=== PATIENT | male | born 1965 | race Two or more races ===

== ENCOUNTER 2020-07-19 17:38 | Inpatient (IN) | payer MEDICAID, OTHER ==
[~2020-07-19] VITALS: Ht 172.7 cm; Wt 65.1 kg
[2020-07-19] MEDS ORDERED: SODIUM CHLORIDE 0.9% 1,000 ML IV ONE ×2 (17:49)
[2020-07-19] MEDS ORDERED: InsuLIN REG 1unit/0.01ml Soln (100units/ml) IV ONE (18:00)
[2020-07-19 19:27] LABS: Basophils # (auto) 0.1 10 ^3/uL (0-0.2); Basophils % (auto) 0.6 % (0.0-2.0); Eosinophils # (auto) 0.1 10 ^3/uL (0-0.8); Eosinophils % (auto) 1.2 % (0.0-7.0); Hematocrit 38.2 % (41.0-53.0); Hemoglobin 12.8 g/dL (13.5-17.5); Lymphocytes % (auto) 12.4 % (10.0-50.0); Mean Corpuscular Hemoglobin 29.8 pg (28.0-32.0); Mean Corpuscular Hgb Conc. 33.6 g/dL (32.0-36.0); Mean Corpuscular Volume 88.8 fL (80.0-100.0); Monocytes # (auto) 0.3 10 ^3/uL (0-1.3); Monocytes % (auto) 3.6 % (0.0-12.0); Neutrophils # (auto) 6.8 10 ^3/uL (1.6-8.6); Neutrophils % (auto) 82.2 % (37.0-80.0); Nucleated Red Blood Cells % 0.1 %; Platelet Count (auto) 251 10^3/uL (140-450); Red Cell Distribution Width 13.6 % (11.8-14.3); White Blood Cell 8.3 10^3/uL (4.4-10.8)
[2020-07-19 19:44] LABS: Albumin 3.4 g/dL (3.4-5.0); Calcium 8.8 mg/dL (8.5-10.1); Potassium 4.6 mmol/L (3.5-5.1)
[2020-07-19] MEDS ORDERED: InsuLIN REG 1unit/0.01ml Soln (100units/ml) SC ONE (19:45)
[2020-07-19 19:52] LABS: BUN/Creatinine Ratio 10.3; Bilirubin, Total 0.4 mg/dL (0.2-1.0); Total Protein 7.6 g/dL (6.4-8.2)
[2020-07-19] MEDS ORDERED: MORPHINE SULF INJ 2 MG/ML SYRINGE 1ML IV PRN (23:00)
[2020-07-19] MEDS ORDERED: ENOXAPARIN SOD 100 MG/1 ML SYRINGE SC ONE (23:00)
[2020-07-19] MEDS ORDERED: ACETAMINOPHEN 325 MG TAB PO PRN (23:00)
[2020-07-19] MEDS ORDERED: NITROGLYCERIN 0.4 MG SL TAB SL PRN (23:00)
[2020-07-19] MEDS ORDERED: ONDANSETRON HCL 4 MG/2 ML VIAL IV PRN (23:00)
[2020-07-19] MEDS ORDERED: DEXTROSE (50%) 50ML SYRG IV PRN (23:00)
[2020-07-20] VITALS (8 sets, daily range): BP systolic 95–135; BP diastolic 68–79
--- NOTE | 2020-07-20 00:52 | NUR ---
Telemetry admit from ER SURESH KEYES admitted to Telemetry unit after SBAR received. Patient oriented to Jazmin Valencia, primary RN, unit, room, bed, and unit policies regarding patient care and visiting hours. Patient now on continuous telemetry monitoring, tele box # [id number] and telemetry reading on arrival to unit is sinus rhythm 64. Patient placed on bedside oxygen, weighed by bedscale and encouraged to call if they need something. All questions and concerns addressed, patient verbalized understanding. Note:
[2020-07-20] MEDS ORDERED: METF-370 PO ×2 (03:23→18:48)
[2020-07-20] MEDS: ACCU-CHEK COMFORT CURVE STRIP VI SCH ×4 (06:31→17:41)
[2020-07-20] MEDS: InsuLIN REG 1unit/0.01ml Soln (100units/ml) SC SCH ×4 (06:32→17:43)
[2020-07-20 07:51] LABS: Basophils # (auto) 0.1 10 ^3/uL (0-0.2); Basophils % (auto) 0.8 % (0.0-2.0); Eosinophils # (auto) 0.2 10 ^3/uL (0-0.8); Eosinophils % (auto) 2.5 % (0.0-7.0); Hematocrit 34.5 % (41.0-53.0); Hemoglobin 11.8 g/dL (13.5-17.5); Lymphocytes # (auto) 1.8 10 ^3/uL (0.4-5.4); Lymphocytes % (auto) 22.9 % (10.0-50.0); Mean Corpuscular Hemoglobin 30.1 pg (28.0-32.0); Mean Corpuscular Hgb Conc. 34.3 g/dL (32.0-36.0); Mean Corpuscular Volume 87.6 fL (80.0-100.0); Monocytes # (auto) 0.3 10 ^3/uL (0-1.3); Monocytes % (auto) 4.3 % (0.0-12.0); Neutrophils # (auto) 5.6 10 ^3/uL (1.6-8.6); Neutrophils % (auto) 69.5 % (37.0-80.0); Platelet Count (auto) 267 10^3/uL (140-450); Red Blood Cells 3.94 10^6/uL (4.5-5.90); Red Cell Distribution Width 13.8 % (11.8-14.3)
[2020-07-20 08:14] LABS: BUN/Creatinine Ratio 12.2; Calcium 7.9 mg/dL (8.5-10.1)
[2020-07-20 08:18] LABS: Potassium 2.9 mmol/L (3.5-5.1)
--- NOTE | 2020-07-20 08:40 | NUR ---
RECEIVED CALL FROM [facility] IN [facility] K CALLED [facility] [employer] [facility] DR ALVARADO, ORDERS RECEIVED.
[2020-07-20] MEDS ORDERED: POTASSIUM CHL 20 Meq TABLET PO ONE (09:30)
[2020-07-20] MEDS ORDERED: POTASSIUM CHLORIDE 40 MEQ, LIDOCAINE 1% (LOCAL ANESTH.) 4 ML in SODIUM CHL 0.9% 100 ML IV ONE (09:30)
[2020-07-20] MEDS: ASPirin 81 mg TAB PO SCH (12:06)
[2020-07-20] MEDS: FAMOTIDINE 20 MG TAB PO SCH ×2 (12:06→21:40)
[2020-07-20] MEDS: POTASSIUM CHL 20 Meq TABLET PO SCH (12:06)
[2020-07-20 15:28] LABS: Potassium 3.7 mmol/L (3.5-5.1)
--- NOTE | 2020-07-20 17:36 | NUR ---
ORTHOSTATIC VITALS COMPLETE LAYING 148/78 56 SITTING 121/80 66 STANDING 118/80 66
--- NOTE | 2020-07-20 18:00 | NUR ---
URINE DRUG SCREEN SENT
--- NOTE | 2020-07-20 18:30 | NUR ---
CALLED PATIENTS PHARMACY TO VERIFY MEDICATIONS ORDERED. MED REC NOW COMPLETE. PER PHARMACY PATIENT HASN'T BEEN THERE SINCE DECEMBER. PER MOM OF PATIENT, PATIENT IS VERY NON COMPLIANT WITH DIABETES.
[2020-07-20] MEDS ORDERED: ROSU40TA PO (18:48)
[2020-07-20] MEDS ORDERED: SITA100T7 PO (18:48)
[2020-07-20] MEDS ORDERED: CHL4PW PO (18:48)
[2020-07-20] MEDS ORDERED: PIO30T PO (18:48)
--- NOTE | 2020-07-20 19:00 | NUR ---
Opening Shift Note Assumed care of patient, awake and alert. No S/S of distress/SOB or pain. Instructed on POC and to call for assist PRN, will continue to monitor for changes Q1hr and PRN. Side rails up x2. Bed locked in lowest position. Call light within reach.
[2020-07-20 19:43] LABS: Urine Bacteria FEW /hpf (None Seen); Urine Blood TRACE /uL (Negative); Urine Budding Yeast FEW /hpf (None Seen); Urine WBC 124 /hpf (0 - 3)
[2020-07-20 19:58] LABS: Alcohol, Urine < 3.0 mg/dL (0-10); Amphetamine Screen, Urine NEGATIVE (NEGATIVE); Barbiturate Scree,Urine NEGATIVE (NEGATIVE); Benzodiazephine Screen, Urine NEGATIVE (NEGATIVE); Cannabinoid Screen, Urine POSITIVE (NEGATIVE); Cocaine Screen, Urine NEGATIVE (NEGATIVE); Opiate Scree,Urine NEGATIVE (NEGATIVE); Phencyclidine Screen, Urine NEGATIVE (NEGATIVE)
[2020-07-20] MEDS: ATORVASTATIN 20 MG TAB PO SCH (21:40)
[2020-07-20] MEDS ORDERED: LORazepam 2MG/ML-1ML VIAL IV PRN (21:45)
[2020-07-21] VITALS (7 sets, daily range): BP systolic 113–155; BP diastolic 73–82
[2020-07-21] MEDS: ACCU-CHEK COMFORT CURVE STRIP VI SCH ×6 (05:25→23:09)
[2020-07-21] MEDS: InsuLIN REG 1unit/0.01ml Soln (100units/ml) SC SCH ×5 (05:25→23:11)
[2020-07-21 06:17] LABS: Hematocrit 38.2 % (41.0-53.0); Hemoglobin 12.8 g/dL (13.5-17.5)
[2020-07-21 06:35] LABS: Potassium 3.6 mmol/L (3.5-5.1)
[2020-07-21 06:42] LABS: BUN/Creatinine Ratio 12.2; Bilirubin, Total 0.7 mg/dL (0.2-1.0); Calcium 8.3 mg/dL (8.5-10.1); Total Protein 6.6 g/dL (6.4-8.2)
--- NOTE | 2020-07-21 07:40 | NUR ---
Opening Shift Note Assumed care of patient, awake and alert. No S/S of distress/SOB or pain. Instructed on POC and to call for assist PRN, will continue to monitor for changes Q1hr and PRN. Bed locked in lowest position with two side rails up and call light in reach.
[2020-07-21] MEDS: ASPirin 81 mg TAB PO SCH (10:01)
[2020-07-21] MEDS: FAMOTIDINE 20 MG TAB PO SCH ×2 (10:02→22:26)
[2020-07-21] MEDS: POTASSIUM CHL 20 Meq TABLET PO SCH (10:02)
--- NOTE | 2020-07-21 15:57 | NUR ---
EEG- ELECTROENCEPHALOGRAM COMPLETED ON 07/21/2020 @ 11:32.
--- NOTE | 2020-07-21 19:24 | NUR ---
Opening Shift Note Assumed care of patient, awake and alert x 4. No S/S of distress/SOB or pain. Bed is in lowest position and locked. Call light within reach. Board updated. Tele box number matches monitor and leads are in correct placement. Instructed on POC and to call for assist PRN, will continue to monitor for changes Q1hr and PRN.
[2020-07-21] MEDS: ATORVASTATIN 20 MG TAB PO SCH (22:26)
[2020-07-21] MEDS: TEMAZEPAM 15 MG CAP PO PRN (23:04)
--- NOTE | 2020-07-22 00:02 | NUR ---
Patient is now NPO. Patient aware and acknowledged that he cannot eat or drink anything until after left heart cath procedure.
[2020-07-22 05:00] VITALS: BP 137/73
[2020-07-22] MEDS: ACCU-CHEK COMFORT CURVE STRIP VI SCH ×4 (05:53→23:05)
[2020-07-22] MEDS: InsuLIN REG 1unit/0.01ml Soln (100units/ml) SC SCH ×4 (05:53→23:12)
--- NOTE | 2020-07-22 05:54 | NUR ---
Regular insulin held, per mild sliding scale, for blood glucose 142 mg/dl. Patient is NPO pending left heart cath.
[2020-07-22 07:48] LABS: Basophils # (auto) 0.1 10 ^3/uL (0-0.2); Basophils % (auto) 0.8 % (0.0-2.0); Eosinophils # (auto) 0.1 10 ^3/uL (0-0.8); Eosinophils % (auto) 0.9 % (0.0-7.0); Hematocrit 39.3 % (41.0-53.0); Hemoglobin 13.2 g/dL (13.5-17.5); Lymphocytes # (auto) 1.6 10 ^3/uL (0.4-5.4); Mean Corpuscular Hemoglobin 29.8 pg (28.0-32.0); Mean Corpuscular Hgb Conc. 33.5 g/dL (32.0-36.0); Monocytes # (auto) 0.4 10 ^3/uL (0-1.3); Monocytes % (auto) 4.7 % (0.0-12.0); Neutrophils # (auto) 6.4 10 ^3/uL (1.6-8.6); Neutrophils % (auto) 74.6 % (37.0-80.0); Platelet Count (auto) 277 10^3/uL (140-450); Red Blood Cells 4.42 10^6/uL (4.5-5.90); Red Cell Distribution Width 13.7 % (11.8-14.3); White Blood Cell 8.6 10^3/uL (4.4-10.8)
[2020-07-22 08:00] VITALS: BP 114/70
[2020-07-22 08:00] LABS: BUN/Creatinine Ratio 17.5; Calcium 8.4 mg/dL (8.5-10.1); Potassium 3.6 mmol/L (3.5-5.1)
[2020-07-22 08:03] LABS: INR 0.97 (0.9-1.15); Partial Thromboplastin Time 26.9 sec (23.0-31.2)
--- NOTE | 2020-07-22 08:10 | NUR ---
SPOKE TO [facility] [employer]ENTIST[employer] LUIS MAYES RN. PER SUGEY PATIENT IS GOING DOWN FOR PROCEDURE LATER THIS AFTERNOON AND CAN HAVE MORNING MEDICATIONS AND BREAKFAST (LIGHT ONLY) PLACAED ORDER FOR CEREAL AND WILL REPLACE NPO ORDERS AFTER PATIENT RECEIVES TRAY.
[2020-07-22 09:00] VITALS: BP 127/77
[2020-07-22] MEDS: ASPirin 81 mg TAB PO SCH (09:22)
[2020-07-22] MEDS: POTASSIUM CHL 20 Meq TABLET PO SCH (09:22)
[2020-07-22] MEDS: FAMOTIDINE 20 MG TAB PO SCH ×2 (09:22→21:23)
[2020-07-22] MEDS ORDERED: IOHEXOL 350 MG/ML 100ML IJ ONE ×2 (12:53→13:44)
[2020-07-22] MEDS ORDERED: LIDOCAINE 2%HCL (LOCAL ANESTH.) INJ 20ML MDV ONE (12:53)
[2020-07-22 13:00] VITALS: BP 134/80
[2020-07-22] MEDS ORDERED: MIDAZOLAM HCL 1MG/1ML-2 ML VIAL ONE (13:02)
[2020-07-22] MEDS ORDERED: fentaNYL CITRATE 100 MCG/2 ML VL ONE (13:02)
[2020-07-22] MEDS ORDERED: ANGIOMAX 250 MG VIAL IV ONE (13:02)
[2020-07-22] MEDS ORDERED: SODIUM CHL 0.9% 50 ML ONE (13:02)
[2020-07-22] MEDS ORDERED: ATROPINE SULF 1 MG/10ml SYR ONE (13:53)
[2020-07-22] MEDS ORDERED: CLOPIDOGREL 300 MG TAB ONE (13:58)
[2020-07-22] MEDS ORDERED: ASPirin 325 MG TAB ONE (13:58)
--- NOTE | 2020-07-22 14:41 | NUR ---
RECEIVED REPORT FROM AMELIA ROE IN DAY CARE AIDE. WILL AWAIT PATIENT.
--- NOTE | 2020-07-22 14:58 | NUR ---
RECEIVED PATIENT TO THE FLOOR S/P C. ALERT AND ORIENTED PATIENT VERBALIZED UNDERSTANDING IN STAYING FLAT TILL 1620. BED LOCKED IN LOWEST POSITION WITH TWO SIDE RAILS UP AND CALL LIGHT IN REACH.
[2020-07-22 17:00] VITALS: BP 145/85
--- NOTE | 2020-07-22 19:35 | NUR ---
Opening Shift Note Assumed care of patient, awake and alert x 4 No S/S of distress/SOB or pain. Cath site to left groin is soft to touch, no signs of ecchymosis. Small amount of dried blood on gauze. Blood spot highlighted. Will continue to assess for increased bleeding. Bed is in lowest position and locked. Call light within reach. Board updated. Tele box number matches monitor and leads are in correct placement. Instructed on POC and to call for assist PRN, will continue to monitor for changes Q1hr and PRN.
[2020-07-22] MEDS: ATORVASTATIN 20 MG TAB PO SCH (21:23)
[2020-07-22 21:40] VITALS: BP 130/76
[2020-07-22] MEDS: TEMAZEPAM 15 MG CAP PO PRN (23:05)
--- NOTE | 2020-07-23 00:02 | NUR ---
No signs of new hematoma formation or bleeding from cath site.
[2020-07-23 04:47] VITALS: BP 107/65
[2020-07-23] MEDS: ACCU-CHEK COMFORT CURVE STRIP VI SCH ×2 (06:49→11:35)
[2020-07-23] MEDS: InsuLIN REG 1unit/0.01ml Soln (100units/ml) SC SCH ×2 (06:50→11:40)
[2020-07-23 07:34] LABS: BUN/Creatinine Ratio 17.8; Calcium 9.1 mg/dL (8.5-10.1); Potassium 3.9 mmol/L (3.5-5.1)
--- NOTE | 2020-07-23 08:00 | NUR ---
Morning note Patient resting in bed with even and unlabored respirations, no distress noted. Instructed patient on POC, fall precautions and to call for assistance as needed. Patient verbalized understanding. Fall precautions in place with call light within reach.
[2020-07-23] MEDS: ASPirin 81 mg TAB PO SCH (08:55)
[2020-07-23] MEDS: FAMOTIDINE 20 MG TAB PO SCH (08:55)
--- NOTE | 2020-07-23 09:30 | NUR ---
Family called for an update Password obtained. Update provided.
[2020-07-23 09:32] VITALS: BP 103/76
[2020-07-23 12:47] VITALS: BP 134/82
--- NOTE | 2020-07-23 13:52 | NUR ---
Patient ambulating around unit steady gait. Respirations even and unlabored, no distress noted. Patient denies SOB or CP.
--- NOTE | 2020-07-23 15:35 | NUR ---
Family called for an update Password obtained. Update provided. Notified female caller that patient is discharged and transportation need. Female caller verbalized understanding. ETA 30 minutes.
--- NOTE | 2020-07-23 16:00 | NUR ---
Discharge Discharge education and paperwork provided to the patient per MD order. Patient verbalized understanding. Fatimah Kris [employer] card provided to the patient for assistance with located a PCP. New discharge prescription provided to the patient. Right groin is clean, dry and intact with no ecchymosis, bleeding or swelling noted. IV removed with clean technique, catheter intact. Dressing applied. Patient tolerated well, no trauma to site. Telemonitor removed and returned. Patient reports having all personal belongings. Respirations even and unlabored, no distress noted.
--- NOTE | 2020-07-23 16:11 | NUR ---
Patient ambulated to hospital lobby with a steady gait. Patient refused wheelchair. Patient accompanied by staff member. No distress noted.
== END 2020-07-23 16:11 | disposition home or self-care (01) | DRG 174 ==
LOC: EDBD 17:38 → ER 17:38 → TELE 17:39 → TELE-WESTW 07-20 02:47
PROVIDERS: ADMIT Nurse Practitioner; ATTEND Internal Medicine
PROC: 027035Z Dilation of Coronary Artery, One Artery with Two Drug-eluting Intraluminal Devices, Percutaneous Approach (ICD-10-PCS; principal; 2020-07-22)
PROC: B2111ZZ Fluoroscopy of Multiple Coronary Arteries using Low Osmolar Contrast (ICD-10-PCS; 2020-07-22)
DX: I21.4 Non-ST elevation (NSTEMI) myocardial infarction (principal); E86.0 Dehydration; E86.1 Hypovolemia; E11.65 Type 2 diabetes mellitus with hyperglycemia; E87.6 Hypokalemia; E78.5 Hyperlipidemia, unspecified; R55 Syncope and collapse; I10 Essential (primary) hypertension; F17.210 Nicotine dependence, cigarettes, uncomplicated; Z79.02 Long term (current) use of antithrombotics/antiplatelets; Z83.3 Family history of diabetes mellitus
CPT/HCPCS: 36415; 70450; 70551; 71045; 80048; 80053; 80061; 80307; 81001; 82010; 82962; 83036; 83735; 83880; 84132; 84443; 84484; 85014; 85018; 85025; 85610; 85730; 86850; 86900; 86901; 92928; 92929; 93306; 93454; 93886; 95819; 97163; 99152; 99153; C1874; C1887; G0378; J1815; J2001; J2250

== ENCOUNTER → 2020-08-12 | Outpatient (CLI) | payer MEDICAID ==
[~2020-08-12] MED LIST: CHL4PW PO; METF-370 PO; PIO30T PO; ROSU40TA PO; SITA100T7 PO
== END | disposition home or self-care (01) ==
LOC: Rad HDHVI 09:09
PROVIDERS: ATTEND Internal Medicine Cardiovascular Disease
DX: I35.1 Nonrheumatic aortic (valve) insufficiency (principal); I51.7 Cardiomegaly; R06.02 Shortness of breath; R55 Syncope and collapse; R42 Dizziness and giddiness; I35.0 Nonrheumatic aortic (valve) stenosis
CPT/HCPCS: 93306

== ENCOUNTER → 2020-08-24 | Outpatient (CLI) | payer MEDICAID ==
[~2020-08-24] MED LIST changes: +ADENOSINE 55 MG in GIVE UN-DILUTED 0 ML IV ONE; +ADENOSINE 90 MG/30 ML INJ IV ONE
== END | disposition home or self-care (01) ==
LOC: Rad HDHVI 09:35
PROVIDERS: ATTEND Internal Medicine Cardiovascular Disease
DX: I25.10 Atherosclerotic heart disease of native coronary artery without angina pectoris (principal); I25.2 Old myocardial infarction; E11.9 Type 2 diabetes mellitus without complications; E78.00 Pure hypercholesterolemia, unspecified; Z82.49 Family history of ischemic heart disease and other diseases of the circulatory system
CPT/HCPCS: 78452; 93005; 96374; 96375; A9500; J0153